=== PATIENT | female | born 1995 | race Hispanic/Latino ===

== ENCOUNTER 2022-02-04 21:26 | Emergency (ER) | payer OTHER ==
[2022-02-04 22:23] LABS: Urine Bacteria <20 /HPF (<20); Urine RBC >50 /HPF (None Seen); Urine WBC Clump Many /HPF (None Seen)
[2022-02-04 22:25] LABS: Specific Gravity 1.013 (1.005-1.030); Urine Bilirubin NEGATIVE (Negative); Urine Blood 3+ (OVER) (Negative); Urine Clarity Turbid (Clear); Urine Color Light-Brown (Yellow); Urine Glucose NEGATIVE (Negative); Urine Protein 1+ (Negative); Urine Urobilinogen Normal (Normal); Urine pH 7.5 (5.0-7.0)
[2022-02-05] MEDS ORDERED: CEFTRIAXONE 1000 MG/VIAL ONE (00:32)
--- NOTE | 2022-02-05 03:01 | EDPHYS ---
Physician Documentation [facility] Name: Smitha Martinez Age: 26 yrs Sex: Female : 1995 Arrival Date: 02/04/2022 Time: 21:36 Bed 13 Private MD: ED Physician Sandy Birmingham HPI: 02/05 02:56 This 26 yrs old Female presents to ER via Ambulatory with complaints of Pelvic sd2 Pain, Urinary Problem, Pain With Urination. 02:56 26 yo F presents with CC of lower abdominal pain, dysuria and urinary frequency for the sd2 past day. No concern for STI. Has also had some episodes of hematuria that patient initially thought was her period as she is 2 months and has not yet gotten it. However, it worsened into the current symptoms. No fever or vomiting. . 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 - Social history:: Smoking status: Patient denies any tobacco usage or history of. ROS: 02/05 02:56 Constitutional: Negative for fever, chills, and weight loss, Eyes: Negative for injury, sd2 pain, redness, and discharge, Cardiovascular: Negative for chest pain, palpitations, and edema, Respiratory: Negative for shortness of breath, cough, wheezing. MS/Extremity: Negative for injury and deformity, Skin: Negative for injury, rash, and discoloration, Neuro: Negative for headache, numbness and tingling. Abdomen/GI: Positive for abdominal pain, Negative for nausea, vomiting, diarrhea. : Positive for urinary symptoms, urinary frequency, hematuria, burning with urination, foul smelling urine. Exam: 02:56 Constitutional: This is a well developed, well nourished patient who is awake, alert, sd2 and in no acute distress. Head/Face: Normocephalic, atraumatic. Eyes: EOMI, normal conjunctiva bilaterally Chest/axilla: Normal chest wall appearance and motion. Nontender with no deformity. Cardiovascular: Regular rate and rhythm with a normal S1 and S2. No gallops, murmurs, or rubs. 2+ distal pulses. Respiratory: Lungs have equal breath sounds bilaterally, clear to auscultation and percussion. No rales, rhonchi or wheezes noted. No increased work of breathing, no retractions or nasal flaring. Abdomen/GI: Soft, ND, TTP of the suprapubic and R and L pelvic areas, R>L, no rebound or guarding Back: No spinal tenderness. No costovertebral tenderness. Full range of motion. Skin: Warm, dry with normal turgor. Normal color with no rashes, no lesions, and no evidence of cellulitis. MS/ Extremity: Pulses equal, no cyanosis. Neurovascular intact. Full, normal range of motion. Ambulatory without difficulty. Psych: Awake, alert, with orientation to person, place and time. Behavior, mood, and affect are within normal limits. Vital Signs: 02/04 21:45 BP 124 / 92; Pulse 71; Resp 18; Temp 98.5; Pulse Ox 96% on R/A; Weight 81.65 kg; Height tw5 5 ft. 1 in. (154.94 cm); Pain 09/16; 02/05 03:09 BP 122 / 83; Pulse 73; Resp 19; Temp 98.6; Pulse Ox 97% on R/A; ke1 02/04 21:45 Body Mass Index 34.01 (81.65 kg, 154.94 cm) tw5 MDM: 02/04 22:04 Patient medically screened. sd2 02/05 02:56 Differential Diagnosis Gastritis, cholecystitis, pancreatitis, SBO, diverticulitis, sd2 kidney stone, appendicitis, UTI, dehydration, electrolyte abnormality among others. Data reviewed: vital signs, nurses notes. Counseling: I had a detailed discussion with the patient and/or guardian regarding: the historical points, exam findings, and any diagnostic results supporting the discharge/admit diagnosis, lab results, radiology results, the need for outpatient follow up, to return to the emergency department if symptoms worsen or persist or if there are any questions or concerns that arise at home. Medical screen evaluation completed. EMTALA emergency medical condition absent. ED course: Labs and imaging reviewed. UA consistent with likely hemorrhagic cystitis. US performed with no evidence of acute abnormality. However, unable to visualize either ovary. I gave patient strict return precautions and early appendicitis precautions as well. Will place on oral antibiotics and pt to return for repeat US if not improving. She did recently have a tubal ligation after her delivery. She is comfortable with a plan for discharge and outpatient follow up. Verbalizes understanding of strict return precautions.. 02/04 21:50 Order name: Urine Culture tw5 02/04 22:06 Order name: Urinalysis; Complete Time: 22:26 sd2 02/05 00:56 Order name: Renal Ultrasound-Complete EDMS 02/04 21:50 Order name: Urine Dipstick-Ancillary (obtain specimen); Complete Time: 22:56 tw5 02/04 21:50 Order name: Urine Test (obtain specimen); Complete Time: 22:09 tw5 02/05 00:57 Order name: Transvaginal Study Probe EDMS Administered Medications: 00:45 Drug: Rocephin (cefTRIAXone) 1 grams Route: IM; Site: right deltoid; ke1 03:03 Follow up: Response: No adverse reaction ke1 Disposition Summary: 02/05/22 03:01 Discharge Ordered Location: Home sd2 Problem: new sd2 Symptoms: have improved sd2 Condition: Stable sd2 Diagnosis - Hemorrhagic cystitis sd2 - Pelvic pain sd2 Followup: sd2 - With: Private Physician - When: 2 - 3 days - Reason: Recheck today's complaints, Continuance of care, Re-evaluation by your physician Discharge Instructions: - Discharge Summary Sheet sd2 - Pelvic Pain, Female sd2 - Hemorrhagic Cystitis sd2 Forms: - Medication Reconciliation Form sd2 - Thank You Letter sd2 - Antibiotic Education sd2 - Prescription Opioid Use sd2 Prescriptions: - Cephalexin 500 mg Oral Capsule - take 1 capsule by ORAL route every 12 hours for 10 days; 20 capsule; Refills: sd2 0, Product Selection Permitted - Ibuprofen 800 mg Oral Tablet - take 1 tablet by ORAL route every 8 hours As needed take with food; 20 tablet; sd2 Refills: 0, Product Selection Permitted Signatures: Dispatcher [employer] ADALBERTO Villela Naz tw5 Elidia Rodriguez RN RN ke1 Sandy Birmingham MD MD sd2 Corrections: (The following items were deleted from the chart) 02/04 21:48 21:48 Allergies: No Known Allergies; 22:18 21:51 UA MICROSCOPIC+U.LAB.BRZ ordered. EDMS EDMS 02/05 00:56 02/04 23:02 Abdomen Limited+US.RAD.BRZ ordered. EDMS EDMS 02/05 00:57 02/04 23:02 Pelvis Complete+US.RAD.BRZ ordered. EDMS EDMS
--- NOTE | 2022-02-05 03:01 | ER ---
Nurse's Notes [facility] Name: Smitha Martinez Age: 26 yrs Sex: Female : 1995 Arrival Date: 02/04/2022 Time: 21:36 Bed 13 Private MD: Diagnosis: Hemorrhagic cystitis;Pelvic pain Presentation: 02/04 21:45 Chief complaint: Patient states: "I started off this morning with burning with tw5 urination, and now I am getting a sharp pain on the right side by my pelvic. I did just get my tubes tied so I wanted to make sure it wasn't a hernia or something. I don't have my gallbladder or appendix anymore.". Coronavirus screen: Vaccine status: Patient reports receiving the 2nd dose of the covid vaccine. All At Home. Ebola Screen: Patient negative for fever greater than or equal to 101.5 degrees Fahrenheit, and additional compatible Ebola Virus Disease symptoms Patient denies exposure to infectious person. Patient denies travel to an Ebola-affected area in the 21 days before illness onset. Initial Sepsis Screen: Does the patient meet any 2 criteria? No. Patient's initial sepsis screen is negative. Does the patient have a suspected source of infection? No. Patient's initial sepsis screen is negative. Risk Assessment: Do you want to hurt yourself or someone else? Patient reports no desire to harm self or others. Onset of symptoms was February 04, 2022. 21:45 Method Of Arrival: Ambulatory tw5 21:45 Acuity: VELVET 3 tw5 Triage Assessment: 21:48 General: Appears uncomfortable, Behavior is calm, cooperative. Pain: Complains of pain tw5 in right femoral area Pain currently is 6 out of 10 on a pain scale. DATA ENTRY: 21:48 LMP 02/04/2022 tw5 Historical: - Allergies: 21:48 Tape; tw5 - PSHx: 21:48 Appendectomy; Cholecystectomy; Ligation of fallopian tube (December 05, 2021); tw5 - Immunization history:: Flu vaccine is not up to date. - Social history:: Smoking status: Patient denies any tobacco usage or history of. Screenin:37 Abuse screen: Denies threats or abuse. Denies injuries from another. Nutritional hb screening: No deficits noted. Tuberculosis screening: No symptoms or risk factors identified. Fall Risk None identified. Assessment: 23:38 Reassessment: Patient appears in no apparent distress at this time. Patient and/or hb family updated on plan of care and expected duration. Pain level reassessed. Patient is alert, oriented x 3, equal unlabored respirations, skin warm/dry/pink. 02/05 00:30 Reassessment: No changes from previously documented assessment. ke1 01:30 Reassessment: No changes from previously documented assessment. ke1 Vital Signs: 02/04 21:45 BP 124 / 92; Pulse 71; Resp 18; Temp 98.5; Pulse Ox 96% on R/A; Weight 81.65 kg; Height tw5 5 ft. 1 in. (154.94 cm); Pain 09/16; 02/05 03:09 BP 122 / 83; Pulse 73; Resp 19; Temp 98.6; Pulse Ox 97% on R/A; ke1 02/04 21:45 Body Mass Index 34.01 (81.65 kg, 154.94 cm) tw5 ED Course: 02/04 21:36 Patient arrived in ED. bp1 21:48 Triage completed. tw5 21:48 Arm band placed on. tw5 22:04 Sandy Birmingham MD is Attending Physician. sd2 22:09 Urinalysis Sent. mm9 22:09 Urine Culture Sent. mm9 23:37 Patient has correct armband on for positive identification. hb 23:37 No provider procedures requiring assistance completed. Patient admitted, IV remains in hb place. 02/05 00:23 Elidia Rodriguez, RN is Primary Nurse. ke1 00:56 Renal Ultrasound-Complete In Process Unspecified. EDMS 00:57 Transvaginal Study Probe In Process Unspecified. EDMS Administered Medications: 00:45 Drug: Rocephin (cefTRIAXone) 1 grams Route: IM; Site: right deltoid; ke1 03:03 Follow up: Response: No adverse reaction ke1 Medication: 02/04 23:38 VIS not applicable for this client. hb Outcome: 02/05 03:01 Discharge ordered by . sd2 03:10 Discharged to home ambulatory. ke1 03:10 Condition: good 03:10 Discharge instructions given to patient. 03:10 Patient left the ED. ke1 Addendum: 02/08/2022 18:40 Addendum: Culture Results: Positive urine culture. No further action required. Bacteria s s sensitive to prescribed antibiotic. Phone call Attempt #1 Pt states symptoms have imrpoved. Signatures: Dispatcher [employer] EDMS Lizabeth Flores RN RN Anamaria Bourne RN RN Josy Shah Tiffany tw5 Elidia Rodriguez RN RN ke1 Sandy Birmingham MD MD sd2 Marianna Barton mm9 Corrections: (The following items were deleted from the chart) 02/04 21:48 21:48 Allergies: No Known Allergies; 22:18 22:09 UA MICROSCOPIC+U.LAB.BRZ drawn and sent. mm9 EDMS
[2022-02-05 03:18] VITALS: BP 122/83; TEMP 98.6; O2SAT 97
--- NOTE | 2022-02-07 15:14 | RAD REPORT ---
EXAM DESCRIPTION: US - Renal Ultrasound-Complete - 02/05/2022 12:55 am CLINICAL HISTORY: 26 years, Female, pelvic pain, hematuria COMPARISON: None FINDINGS: Multiple grayscale images real-time ultrasound evaluation of the bilateral kidneys and uri nary bladder was performed. Color Doppler imaging was used assess vascular flow of both kidneys. The right kidney measures 11.1 x 4.4 x 5.2 cm. The left kidney was suboptimal in visualization measuring 8.5 x 4 x 4.5 cm. Grossly both kidneys demonstrate normal cortical medullary differentiation with no nephrolithiasis an d/or hydronephrosis. No significant renal masses. The bladder demonstrate to be within normal limits. No ureteral jets were demonstrated. IMPRESSION: Limited evaluation of the left kidney. Otherwise unremarkable renal ultrasound. Electronically signed by: Flavio Garcia MD 02/05/2022 2:16 AM CDT Due to temporary technical issues with the PACS/Fluency reporting system, reports are being signed by the in house radiologists without review as a courtesy to insure prompt reporting. The interpreting radiologist is fully responsible for the content of the report.
--- NOTE | 2022-02-07 15:16 | RAD REPORT ---
EXAM DESCRIPTION: US - Transvaginal Study Probe - 02/05/2022 12:56 am CLINICAL HISTORY: 26 years Female PAIN, LMP: Not provided, patient had a section 2 months a go TECHNIQUE: Ultrasound imaging of the pelvis was performed endovaginally on 02/05/2022 at 12: 36 AM. COMPARISON: Pelvic ultrasound performed on 04/30/2021 FINDINGS: The uterus is retroflexed and measures 11.7 x 4.0 x 5.4 cm. The endometrial echo complex w as not measured. No definite free fluid is seen in the endometrial canal. There appear to be a few sm all cervical nabothian cysts. The ovaries were not visualized on this examination. The patient was unable to tolerate the examinati on due to pain. No definite free fluid was visualized. IMPRESSION: 1. Mildly enlarged, retroflexed uterus. 2. Nonvisualization of the ovaries on this examination due to pain during the examination as noted above. Electronically signed by: Hyun Rucker DO 02/05/2022 2:17 AM CDT Due to temporary technical issues with the PACS/Fluency reporting system, reports are being signed by the in house radiologists without review as a courtesy to insure prompt reporting. The interpreting radiologist is fully responsible for the content of the report.
== END 2022-02-05 03:10 | disposition home or self-care (01) ==
LOC: ER 21:26
DX: N30.91 Cystitis, unspecified with hematuria (principal); Z91.048 Other nonmedicinal substance allergy status
CPT/HCPCS: 76770; 76830; 81001; 87077; 87086; 87088; 87186; 96372; 99283